=== PATIENT | female | born 1990 | race African-American/Black ===

== ENCOUNTER 2019-12-24 21:39 | Emergency (ER) | payer SELFPAY ==
[2019-12-24] MEDS ORDERED: Ondansetron ODT 4 MG TAB ONE (23:20)
--- NOTE | 2019-12-25 08:07 | ULT ---
PRELIMINARY REPORT/[facility]/EMERGENCY AFTER HOURS PROCEDURE: EXAM: US Pelvis, Complete. CLINICAL HISTORY: Ml pelvic cramping pain, irregular vaginal bleeding, N/V/D TECHNIQUE: Transvaginal and transabdominal pelvic ultrasound (complete) with image documentation. COMPARISON: None provided. FINDINGS: ENDOMETRIUM: Normal thickness. Measures 2.8 mm UTERUS/CERVIX: Normal size and contour. Measures 8.0 x 4.2 x 5.1 cm and demonstrates multiple fibroids measuring u p to 2.2 x 1.9 x 2.1 cm RIGHT OVARY: Normal follicles. No adnexal mass. Normal blood flow. Measures 2.4 x 2.1 x 2.8 cm LEFT OVARY: Normal follicles. No adnexal mass. Normal blood flow. Measures 4.3 x 2.7 x 3.1 cm and demonstrates a 2.7 x 1.4 x 2.1 cm cyst FREE FLUID: No free fluid. IMPRESSION: Fibroid uterus ELECTRONICALLY SIGNED BY: Michael Kay MD Dec 25, 2019 12:19:44 AM CDT This report is intended for review by the ordering physician only, in accordance of law. If you recei ve this report in error, please call [facility] at [phone]. FINAL REPORT TRANSABDOMINAL AND TRANSVAGINAL PELVIC ULTRASOUND WITH ARMSTRONG SCALE AND COLOR FLOW AND SPECTRAL DOPPLER IMAGING: FINDINGS/IMPRESSION: I agree with the preliminary report given by [facility]. POS: [facility]
== END 2019-12-25 00:37 | disposition home or self-care (01) ==
LOC: ERS 21:39
DX: N72 Inflammatory disease of cervix uteri (principal); I10 Essential (primary) hypertension; F41.9 Anxiety disorder, unspecified; F32.9 Major depressive disorder, single episode, unspecified
CPT/HCPCS: 76856; Q0162